=== PATIENT | male | born 1960 | race Two or more races ===

== ENCOUNTER → 2016-05-01 | Outpatient (CLI) | payer OTHER ==
--- NOTE | 2016-05-01 11:31 | US ---
Ultrasound right infraclavicular region 0938 hours. History: Right intracanalicular mass. Evaluate for lipoma versus lymphadenopathy. Findings: Ultrasound over area of palpable mass right infraclavicular region confirms smooth oval ech ogenic lesion compatible with lipoma that measures 3.4 x 1.2 cm in transverse and AP dimensions. This is compressible and mobile during scanning. No lymphadenopathy is seen. Impression: Benign-appearing lipoma corresponds with area of palpable nodule right infraclavicular re gion. Clinical followup recommended. If this increases clinically then repeat ultrasound can be perfo rmed.
== END ==
LOC: BMCIMAGING 09:11
PROVIDERS: ATTEND Internal Medicine
DX: D17.9 Benign lipomatous neoplasm, unspecified (principal)